=== PATIENT | male | born 1970 | race Caucasian/White ===

== ENCOUNTER 2018-06-17 21:55 | Emergency (ER) | payer SELFPAY ==
--- NOTE | 2018-06-17 21:55 | NUR ---
Patient to ER bed h1. accompanied by [facility]
--- NOTE | 2018-06-17 22:10 | NUR ---
AMA, pt refused to be seen by MD.
--- NOTE | 2018-06-17 22:57 | NUR ---
Christa rader in ED - 06/17/18 at 2257 by [email or web address] AMA, pt refused to be seen by .
== END 2018-06-17 22:10 | disposition left against medical advice (07) ==
LOC: SED 21:55
DX: Z02.89 Encounter for other administrative examinations (principal); Z53.21 Procedure and treatment not carried out due to patient leaving prior to being seen by health care provider